=== PATIENT | male | born 1955 ===

== ENCOUNTER 2022-10-01 22:28 | Emergency (ER) | payer MEDICARE, OTHER ==
[2022-10-01] MEDS ORDERED: methylPREDNISolone Sodium Succinate 125 MG/2 ML SDV IVPUSH ONE (22:41)
[2022-10-01] MEDS ORDERED: diphenhydrAMINE 50 MG/ML SDV ONE (22:41)
[2022-10-01] MEDS ORDERED: EPINEPHrine 1 MG/1 ML Amp IM ONE (22:41)
[2022-10-01] MEDS ORDERED: diphenhydrAMINE 50 MG/ML SDV IVPUSH ONE (22:41)
[2022-10-01] MEDS ORDERED: Famotidine 20 MG/2 ML SDV IVPUSH ONE (22:41)
[2022-10-01] MEDS ORDERED: EPINEPHrine 1 MG/1 ML Amp ONE (22:41)
[2022-10-01] MEDS ORDERED: methylPREDNISolone Sodium Succinate 125 MG/2 ML SDV ONE (22:41)
[2022-10-01] MEDS ORDERED: Famotidine 20 MG/2 ML SDV ONE (22:42)
[2022-10-01 22:48] LABS: BASOPHILS PERCENT AUTO 0.4 % (0.0-1.5); EOSINOPHILS ABSOLUTE AUTO 0.1 K/uL (0.0-0.7); EOSINOPHILS PERCENT AUTO 2.4 % (0.0-7.0); HEMATOCRIT 41.2 % (38.0-50.0); HEMOGLOBIN 13.8 g/dL (13.0-17.0); LYMPHOCYTES ABSOLUTE AUTO 1.6 K/uL (0.6-2.4); LYMPHOCYTES PERCENT AUTO 31.4 % (16.0-40.0); MEAN CORPUSCULAR HEMOGLOBIN 30.4 pg (27.0-32.0); MEAN CORPUSCULAR HGB CONC 33.5 g/dL (31.0-37.0); MEAN CORPUSCULAR VOLUME 90.7 fL (80.0-98.0); MONOCYTES ABSOLUTE AUTO 0.4 K/uL (0.0-0.8); MONOCYTES PERCENT AUTO 8.7 % (0.0-15.0); NEUTROPHILS ABSOLUTE AUTO 2.8 K/uL (1.4-5.7); NEUTROPHILS PERCENT AUTO 57.1 % (48.0-80.0); NRBC ABSOLUTE 0 K/uL; PLATELET COUNT,PLT 160 K/uL (150-400); RED BLOOD CELL COUNT 4.54 M/uL (4.50-5.90); WHITE BLOOD CELL COUNT,WBC 4.94 K/uL (4.0-11.0)
[2022-10-01 23:23] LABS: ALBUMIN 3.5 g/dL (3.4-5.0); BILIRUBIN TOTAL 0.2 mg/dL (0.2-1.0); CALCIUM 8.6 mg/dL (8.5-10.1); CARBON DIOXIDE,CO2 29.2 mmol/L (21.0-32.0); CREATININE 1.1 mg/dL (0.8-1.3); EST CRCL DRUG DOSING (CG) 60.93 mL/min; POTASSIUM,K 3.9 mmol/L (3.5-5.1); PROTEIN TOTAL,TP 6.9 g/dL (6.4-8.2)
[2022-10-02] MEDS ORDERED: Tetracaine HCl/PF 0.5% 4 ML Bottle EYEBOTH STA (00:13)
== END 2022-10-02 02:00 | disposition home or self-care (01) ==
LOC: MW.ED 22:28
DX: T78.40XA Allergy, unspecified, initial encounter (principal)
CPT/HCPCS: 36415; 80053; 85025; 96372; 96374; 96375; 99283; J0171; J1200; J2930; J3490; 99284